=== PATIENT | female | born 1945 | race Caucasian/White ===

== ENCOUNTER → 2023-10-18 11:12 | Outpatient (REF) | payer OTHER, SELFPAY ==
--- NOTE | 2023-10-19 10:12 | OID.BR.INTR ---
[facility] Breast Navigator - Initial
- -
Did not meet patient at time of biopsy. Will follow up per protocol.
== END ==
LOC: WDC 11:12
PROVIDERS: ATTENDING PHYSICIAN Internal Medicine Hematology & Oncology
DX: N63.21 Unspecified lump in the left breast, upper outer quadrant (principal)
CPT/HCPCS: 88305; 19083; 77065; 88341; 88342; 88360; A4648

== ENCOUNTER → 2023-11-03 16:04 | Outpatient (REF) | payer OTHER, SELFPAY | LOC: MRI 3T 16:04 | PROVIDERS: ATTENDING PHYSICIAN Surgery; FAMILY PHYSICIAN Physician Assistant Medical | DX: C50.412 Malignant neoplasm of upper-outer quadrant of left female breast (principal); Z17.0 Estrogen receptor positive status [ER+] | CPT/HCPCS: 77049; A9585 ==

== ENCOUNTER → 2023-11-18 07:03 | Outpatient (REF) | payer OTHER, SELFPAY ==
[2023-11-18 08:59] LABS: Hematocrit 32.8 % (37.0-47.0); Hemoglobin 10.7 g/dL (12.0-16.0); Mean Corp Hgb Conc. 32.6 g/dL (33.0-37.0); Mean Corpuscular Hgb 30.2 pg (27.0-31.0); Mean Corpuscular Volume 92.7 fL (81.0-99.0); Platelet Count 39 10^3/uL (130-400); Red Blood Cell Count 3.54 10^6/uL (4.20-5.40); Red Cell Dist. Width 19.6 % (11.5-14.5)
[2023-11-18 09:31] LABS: Absolute Neutrophils -Man Diff 26.2 10^3/uL (1.4-6.5); Anisocytosis 1+; Band Neutrophils 14 % (0-3); Lymphocytes 16 % (20-51); Metamyelocytes 4 % (-); Monocytes 5 % (2-9); Myelocytes 4 % (-); Normal RBC Morphology No; Nucleated Red Blood Cells 8 (-); Platelets Checked Yes; Segmented Neutrophils 57 % (42-75)
[2023-11-18 09:32] LABS: Polychromasia 2+; Total Cells Counted 100
== END ==
LOC: RCS 07:03
PROVIDERS: Internal Medicine Hematology & Oncology; ATTENDING PHYSICIAN Internal Medicine Cardiovascular Disease; FAMILY PHYSICIAN Physician Assistant Medical
DX: Z85.3 Personal history of malignant neoplasm of breast (principal); C93.10 Chronic myelomonocytic leukemia not having achieved remission; I45.4 Nonspecific intraventricular block; I44.7 Left bundle-branch block, unspecified
CPT/HCPCS: 36415; 85025; 86850; 86900; 86901; 93306

== ENCOUNTER → 2023-11-22 08:03 | Outpatient (REF) | payer OTHER, SELFPAY | LOC: WDC 08:03 | PROVIDERS: ATTENDING PHYSICIAN Surgery | DX: C50.412 Malignant neoplasm of upper-outer quadrant of left female breast (principal) | CPT/HCPCS: 19285; 77065; A4648 ==

== ENCOUNTER 2023-11-23 06:10 | Day surgery (SDC) | payer OTHER, SELFPAY ==
[2023-11-13 12:01] VITALS: BMI 39.7
--- NOTE | 2023-11-13 13:45 | SUR.OPER ---
Patients 11/13/23 EKG abnormal- reviewed by Dr. Mariano- cardiology evaluation required. Sebastien @ Dr. Zaldivar office notified
--- NOTE | 2023-11-20 11:53 | PTCARENOTE ---
Sebastien at 's office was notified of platelets 39 & WBC 37 collected on 11/18/23.
--- NOTE | 2023-11-20 12:00 | PTCARENOTE ---
will be giving platelets (per Sebastien at 's office). Waiting for clarification if they will be given ahead of time or preop on day of surgery. Hematology clearance note has also been requested.
--- NOTE | 2023-11-21 07:51 | PTCARENOTE ---
Patients 11/13/23 EKG abnormal- reviewed by Dr. Mariano- cardiology evaluation required. Sebastien Zaldivar office notified 11/12
[2023-11-23] VITALS (7 sets, daily range): BP systolic 124–163; BP diastolic 53–73; BMI 39.7
[2023-11-23 12:45] LABS: Glucose - Point of Care 147 mg/dl (70-99)
[2023-11-23] MEDS: NORMOSOL-R 1000 IV (12:46)
[2023-11-23] MEDS: VANCOCIN 200 IV (12:47)
[2023-11-23] MEDS: TYLENOL 1000 MG PO (13:03)
[2023-11-23] MEDS: LOVENOX 40 MG SC (13:04)
[2023-11-23 16:07] LABS: Glucose - Point of Care 255 mg/dl (70-99)
[2023-11-23] MEDS: NOVOLOG vial 100 UNITS SC (16:30)
== END 2023-11-23 17:10 | disposition home or self-care (01) ==
LOC: SDS 06:10
PROVIDERS: ATTENDING PHYSICIAN Surgery; FAMILY PHYSICIAN Physician Assistant Medical
DX: C50.912 Malignant neoplasm of unspecified site of left female breast (principal); Z17.0 Estrogen receptor positive status [ER+]
CPT/HCPCS: 19301; 88305; 88307; 36415; 76098; 82962; 86850; 86900; 86901; 88341; 88342; 88360; 93005; A4648

== ENCOUNTER 2023-11-23 07:35 | Outpatient (RCR) | payer OTHER, SELFPAY ==
[2023-11-23] VITALS (7 sets, daily range): BP systolic 161–176; BP diastolic 67–74
== END 2023-12-03 23:59 | disposition home or self-care (01) ==
LOC: OID 07:35
PROVIDERS: ATTENDING PHYSICIAN Internal Medicine Hematology & Oncology; FAMILY PHYSICIAN Physician Assistant Medical
DX: C50.412 Malignant neoplasm of upper-outer quadrant of left female breast (principal); D72.9 Disorder of white blood cells, unspecified (principal); D72.0 Genetic anomalies of leukocytes; C50.212 Malignant neoplasm of upper-inner quadrant of left female breast; C93.10 Chronic myelomonocytic leukemia not having achieved remission; Z17.0 Estrogen receptor positive status [ER+]
CPT/HCPCS: 36415; 36430; 86900; 86901; P9073